=== PATIENT | male | born 1955 | race Caucasian/White ===

== ENCOUNTER → 2021-03-06 09:28 | Outpatient (CLI) | payer OTHER, SELFPAY ==
[2021-03-06 10:17] LABS: Add Manual Diff / Slide Review NO; Basophils Absolute Auto 0 /uL (0-100); Basophils Percent Auto 0.4 % (0-2); Eosinophils Absolute Auto 100 /uL (0-450); Hematocrit 43.7 % (41-53); Hemoglobin 15.1 g/dL (13.5-17.5); Lymphocytes Absolute Auto 2700 /uL (1100-4500); Lymphocytes Percent Auto 24.2 % (25-40); Mean Corpuscular HGB Conc 34.5 % (30-36); Mean Corpuscular Volume 92.6 fL (80-100); Monocytes Absolute Auto 600 /uL (0-900); Monocytes Percent Auto 4.9 % (3-14); Neutrophils Absolute Auto 7900 /uL (1500-7000); Neutrophils Percent Auto 69.5 % (50-75); Platelet Count 272 X10^3/uL (150-400); Red Blood Cell Count 4.72 X10^6/uL (4.5-5.9); Red Cell Distribution Width 12.9 % (11.6-14.8); White Blood Cell Count 11.3 X10^3/uL (4.5-11.0)
[2021-03-06 11:37] LABS: Prostate Specific Antigen 0.638 ng/mL (0.10-4.00)
== END ==
PROVIDERS: PCP Family Medicine; Referring Provider Family Medicine; Visit Provider Family Medicine
DX: Z00.00 Encounter for general adult medical examination without abnormal findings (principal); J43.9 Emphysema, unspecified
CPT/HCPCS: 36415; 84153; 85025

== ENCOUNTER → 2021-03-13 10:30 | Outpatient (CLI) | payer OTHER, SELFPAY ==
--- NOTE | 2021-03-13 10:31 | DI.RAD.S_ITS ---
PROCEDURE: XR CHEST 2V INDICATIONS: chronic cough in a smoker TECHNIQUE: 2 views of the chest were acquired. COMPARISON: None. FINDINGS: Surgical changes and devices: None. Lungs and pleura: Lung volumes are increased with flattening of the hemidiaphragms suggesting COPD. Lungs are clear. No pleural effusions or pneumothorax. Mediastinum: Mediastinal contours are normal. Heart size is normal. Bones and chest wall: No suspicious bony abnormalities. Soft tissues appear unremarkable. IMPRESSION: Lung volumes are increased suggesting COPD, correlate with pulmonary functions test. Dictated by: Logan Castle [facility] Interpreted: Zackary Morales MD on 03/13/2021 at 10:59 Transcribed by: TAI on 03/13/2021 at 10:59 Approved by: Zackary Morales M.D. on 03/13/2021 at 16:24
== END ==
PROVIDERS: PCP Family Medicine; Referring Provider Family Medicine; Visit Provider Family Medicine
DX: J43.9 Emphysema, unspecified (principal); R05.3 Chronic cough; F17.200 Nicotine dependence, unspecified, uncomplicated
CPT/HCPCS: 71046